=== PATIENT | female | born 1995 | race Caucasian/White ===

== ENCOUNTER → 2017-10-07 | Outpatient (CLI) | payer MEDICAID | LOC: HPND 12:44 | PROVIDERS: ATTEND Obstetrics & Gynecology | DX: O99.212 Obesity complicating pregnancy, second trimester (principal); E66.01 Morbid (severe) obesity due to excess calories; Z68.42 Body mass index [BMI] 45.0-49.9, adult | CPT/HCPCS: 76811 ==

== ENCOUNTER 2018-02-05 12:20 | Inpatient (IN) ==
--- NOTE | 2018-02-05 14:02 | P.HPOB ---
History of Present Illness Primary Care Physician: No Primary Care Physician History of Present Illness: Patient is a 22-year-old female at 39 and 1 presents to the emergency room with positive SROM at 9:30 AM. States that the fluid was clear, denies any vaginal bleeding, confirms movements, denies any contractions. Patient states she lost her mucous plug last week Thursday. She is being seen by Dr. Saini. She also complains of headaches that have started over this week. She has had multiple that come and go throughout the day. course: Complicated by morbid obesity. Denies any other complications. GBS negative, A+. Had a history of one elevated blood pressure that had resolved. Past medical history: Anxiety, GERD. Past surgical history: Tonsillectomy, wisdom tooth extraction. Allergies: Latex (contact dermatitis/rash) Social history: She denies smoking, drinking, or illicit drug use during . ROS: She denies any CP, SOB, Ab Pain, Problems with urination/defecation. - Inpatient Certification I certify that the inpatient services were ordered in accordance with Medicare regulations governing the order. This includes certification that hospital inpatient services are reasonable and necessary and in the case of services not specified as inpatient-only under 42 CFR 419.22(n), that they are appropriately provided as inpatient services in accordance to with the 2-midnight benchmark under 43 CFR 412.3(e) Estimated Total Length of Stay (Days): 3 Plans for Post Hospital Care: Home Review of Systems All other systems reviewed negative except as stated in HPI Medications and Allergies Active Medications: Active Medications Citric Acid/Sodium Citrate (Sodium Citrate/Citric Acid Liq) 30 ml PO [employer]WRIT[employer] [facility] Stop: 02/09/18 14:14 Fentanyl Citrate (Fentanyl Inj) 50 mcg IV.PUSH Q1H PRN PRN Reason: Pain Scale 3 - 5 Fentanyl Citrate (Fentanyl Inj) 100 mcg IV.PUSH Q1H PRN PRN Reason: PAIN SCALE 6 TO 10 Lactated Ringer's (Lr 1000 Ml Inj) 1,000 mls @ 125 mls/hr IV.CONT .Q8H [facility] Lactated Ringer's (Lr 1000 Ml Inj) 1,000 mls @ 3,000 mls/hr IV.SIG UNSCH PRN PRN Reason: compromise or epidural Sodium Chloride (Ns Inj) 1,000 mls @ 100 mls/hr IV.CONT .Q10H PRN PRN Reason: SEE LABEL COMMENTS Oxytocin (Pitocin 30 Units/Ns 500 Ml Premix) 30 units in 500 mls @ 999 mls/hr IV.SIG BOLUS ONE Stop: 02/05/18 14:33 Sodium Chloride (Ns Inj) 500 mls @ 1,000 mls/hr IV.SIG UNSCH PRN PRN Reason: SEE LABEL COMMENTS Lidocaine HCl (Xylocaine 1% Inj) 0.1 ml I-DERMAL PRN PRN PRN Reason: For IV start Stop: 02/08/18 14:02 Lidocaine HCl (Xylocaine 1% Inj) 10 ml INFILTRATN PRN PRN PRN Reason: For episiotomy repair Stop: 02/07/18 14:02 Mineral Oil (Muri-Lube Oil) 10 ml TOPICAL PRN PRN PRN Reason: PRN perineal massage Naloxone HCl (Narcan Inj) 0.1 mg IV.PUSH Q2M PRN PRN Reason: for opiate reversal Allergies Allergy/AdvReac Type Severity Reaction Status Date / Time Latex, Natural Rubber Allergy Rash, Verified 02/05/18 14:26 Localized Home Medications Medication Instructions Recorded Confirmed Type cyanocobalamin-cobamamide [B12] SUBLINGUAL DAILY 02/05/18 History folic acid PO DAILY 02/05/18 History prenat.vits,jeremi,[id number] 1 PO DAILY 02/05/18 History [ Vitamin] Exam Vital signs: Vital Signs 02/05/18 12:52 02/05/18 13:30 Temperature 98.4 F Pulse Rate 116 H 91 H Respiratory Rate 18 Blood Pressure 126/88 149/93 H Narrative: GENERAL: Well-nourished, well-developed patient. SKIN: Warm and dry. CARDIOVASCULAR: Regular rate and rhythm without murmurs, gallops, or rubs. RESPIRATORY: Breath sounds equal bilaterally. No accessory muscle use. ABDOMEN/GI: Abdomen soft, non-tender, bowel sounds present, no rebound, no guarding Gravid to 39 weeks size GENITOURINARY per nursing: Cervix: mid position Dilatation: 2cm Effacement: 20% Station:-2 Presentation: cephalic Membranes: ruptured Uterine Contractions: none FHT's: Category: 1 Baseline: 140 bmp Reactive: yes Variability: moderate Decels: none EXTREMITIES: 2+ edema b/l. Assessment and Plan - Plan 22-year-old at 39+1 presents with positive SROM at 9:30 AM, and amnisure positive. GBS negative, a positive. Blood pressures mildly elevated at 149/ 93. Patient complains of headaches that have occurred over this week. 2+ edema. -Admit to labor and delivery. EFM/toco: Good accelerations, moderate variability, no decelrations. no contractions. Amnisure: Positive -Regular diet for dinner. Liquid Diet after. -LR @ 125 ml/hour -Epidural for pain. CBC, CMP, uric acid ordered. Follow-up Cervical check: 07/14/-2, [place] score 2. -Buccal Cytotec.
[2018-02-05] MEDS ORDERED: Sodium Chlor 0.9% Inj 500 ML IV.SIG PRN (14:03)
[2018-02-05] MEDS ORDERED: Oxytocin 30 Units/500ml Premix 30 UNITS/500 ML BAG IV.SIG ONE (14:03)
[2018-02-05] MEDS ORDERED: Sod Chloride 0.9% Inj 1,000 ML IV.CONT PRN (14:03)
[2018-02-05] MEDS ORDERED: Naloxone Inj 0.4 MG/ML Vial IV.PUSH PRN (14:03)
[2018-02-05] MEDS ORDERED: fentaNYL Citrate Inj 100 MCG/2 ML Ampul IV.PUSH PRN ×2 (14:03)
[2018-02-05] MEDS ORDERED: Citric Acid/Sodium Citrate Liq 30 ML UDC PO SCH (14:15)
--- NOTE | 2018-02-05 14:15 | ED ---
History of Present Illness Primary Care Physician: No Primary Care Physician History of Present Illness: Patient is a 22-year-old female at 39 and 1 presents to the emergency room with positive SROM at 9:30 AM. States that the fluid was clear, denies any vaginal bleeding, confirms movements, denies any contractions. Patient states she lost her mucous plug last week Thursday. She is being seen by Dr. Saini. She also complains of headaches that have started over this week. She has had multiple that come and go throughout the day. course: Complicated by morbid obesity. Denies any other complications. GBS negative, A+. Had a history of one elevated blood pressure that had resolved. Past medical history: Anxiety, GERD. Past surgical history: Tonsillectomy, wisdom tooth extraction. Allergies: Latex (contact dermatitis/rash) Social history: She denies smoking, drinking, or illicit drug use during . ROS: She denies any CP, SOB, Ab Pain, Problems with urination/defecation. - Inpatient Certification I certify that the inpatient services were ordered in accordance with Medicare regulations governing the order. This includes certification that hospital inpatient services are reasonable and necessary and in the case of services not specified as inpatient-only under 42 CFR 419.22(n), that they are appropriately provided as inpatient services in accordance to with the 2-midnight benchmark under 43 CFR 412.3(e) Estimated Total Length of Stay (Days): 3 Plans for Post Hospital Care: Home Review of Systems All other systems reviewed negative except as stated in HPI Medications and Allergies Active Medications: Active Medications Citric Acid/Sodium Citrate (Sodium Citrate/Citric Acid Liq) 30 ml PO [employer] DES[employer]INE[employer] [facility] Stop: 02/09/18 14:14 Fentanyl Citrate (Fentanyl Inj) 50 mcg IV.PUSH Q1H PRN PRN Reason: Pain Scale 3 - 5 Fentanyl Citrate (Fentanyl Inj) 100 mcg IV.PUSH Q1H PRN PRN Reason: PAIN SCALE 6 TO 10 Lactated Ringer's (Lr 1000 Ml Inj) 1,000 mls @ 125 mls/hr IV.CONT .Q8H [facility] Lactated Ringer's (Lr 1000 Ml Inj) 1,000 mls @ 3,000 mls/hr IV.SIG UNSCH PRN PRN Reason: compromise or epidural Sodium Chloride (Ns Inj) 1,000 mls @ 100 mls/hr IV.CONT .Q10H PRN PRN Reason: SEE LABEL COMMENTS Oxytocin (Pitocin 30 Units/Ns 500 Ml Premix) 30 units in 500 mls @ 999 mls/hr IV.SIG BOLUS ONE Stop: 02/05/18 14:33 Sodium Chloride (Ns Inj) 500 mls @ 1,000 mls/hr IV.SIG UNSCH PRN PRN Reason: SEE LABEL COMMENTS Lidocaine HCl (Xylocaine 1% Inj) 0.1 ml I-DERMAL PRN PRN PRN Reason: For IV start Stop: 02/08/18 14:02 Lidocaine HCl (Xylocaine 1% Inj) 10 ml INFILTRATN PRN PRN PRN Reason: For episiotomy repair Stop: 02/07/18 14:02 Mineral Oil (Muri-Lube Oil) 10 ml TOPICAL PRN PRN PRN Reason: PRN perineal massage Naloxone HCl (Narcan Inj) 0.1 mg IV.PUSH Q2M PRN PRN Reason: for opiate reversal Allergies Allergy/AdvReac Type Severity Reaction Status Date / Time Latex, Natural Rubber Allergy Rash, Verified 02/05/18 14:26 Localized Home Medications Medication Instructions Recorded Confirmed Type cyanocobalamin-cobamamide [B12] SUBLINGUAL DAILY 02/05/18 History folic acid PO DAILY 02/05/18 History prenat.vits,jeremi,[id number] 1 PO DAILY 02/05/18 History [ Vitamin] Exam Vital signs: Vital Signs 02/05/18 12:52 02/05/18 13:30 Temperature 98.4 F Pulse Rate 116 H 91 H Respiratory Rate 18 Blood Pressure 126/88 149/93 H Narrative: GENERAL: Well-nourished, well-developed patient. SKIN: Warm and dry. CARDIOVASCULAR: Regular rate and rhythm without murmurs, gallops, or rubs. RESPIRATORY: Breath sounds equal bilaterally. No accessory muscle use. ABDOMEN/GI: Abdomen soft, non-tender, bowel sounds present, no rebound, no guarding Gravid to 39 weeks size GENITOURINARY per nursing: Cervix: mid position Dilatation: 2cm Effacement: 20% Station:-2 Presentation: cephalic Membranes: ruptured Uterine Contractions: none FHT's: Category: 1 Baseline: 140 bmp Reactive: yes Variability: moderate Decels: none EXTREMITIES: 2+ edema b/l. Assessment and Plan - Plan 22-year-old at 39+1 presents with positive SROM at 9:30 AM, and amnisure positive. GBS negative, a positive. Blood pressures mildly elevated at 149/ 93. Patient complains of headaches that have occurred over this week. 2+ edema. -Admit to labor and delivery. EFM/toco: Good accelerations, moderate variability, no decelrations. no contractions. Amnisure: Positive -Regular diet for dinner. Liquid Diet after. -LR @ 125 ml/hour -Epidural for pain. CBC, CMP, uric acid ordered. Follow-up Cervical check: 07/14/2, [place] score 2. -Buccal Cytotec. Discharge Plan - Discharge Condition Condition: Stable - Physicians Team Primary Care Provider: Primary Care Viridiana Miranda Attending Provider: Harsh Noland
[2018-02-05 14:43] LABS: Baso % (Auto) 0.2 % (0.0-2.0); Eos # (Auto) 0.1 th/mm3 (0.0-0.4); Eos % (Auto) 0.7 % (0.0-4.0); Hematocrit 34.7 % (35.0-46.0); Hemoglobin 11.7 gm/dL (11.6-15.3); Lymph % (Auto) 15.5 % (9.0-44.0); Mean Corpuscular HGB Conc 33.8 % (32.0-36.0); Mean Corpuscular Hemoglobin 29.4 pg (27.0-34.0); Mono # (Auto) 0.7 th/mm3 (0.0-0.9); Mono % (Auto) 5.6 % (0.0-8.0); Neut # (Auto) 10.3 th/mm3 (1.8-7.7); Platelet Count 227 th/mm3 (150-450); Red Blood Count 3.99 mil/mm3 (4.00-5.30); Red Cell Distribution Width 13.4 % (11.6-17.2); White Blood Count 13.2 th/mm3 (4.0-11.0)
[2018-02-05 14:58] LABS: Albumin 2.8 g/dL (3.4-5.0); Anion Gap 9 meq/L (5-15); Blood Urea Nitrogen 11 mg/dL (7-18); Calcium 8.2 mg/dL (8.5-10.1); Carbon Dioxide 25.2 meq/L (21.0-32.0); Chloride 105 meq/L (98-107); Glomerular Filtration Rate Greater Than 89 mL/min (>89); Glucose,Random 85 mg/dL (74-106); Potassium 3.7 meq/L (3.5-5.1); Sodium 139 meq/L (136-145)
[2018-02-05 14:59] LABS: Alanine Aminotransferase 38 U/L (10-53); Aspartate Aminotransferase 23 U/L (15-37)
[2018-02-05 15:01] LABS: Alkaline Phosphatase 105 U/L (45-117); Bacteria,Urine Rare /hpf; Bilirubin,Urine Negative (Negative); Clarity,Urine Turbid (Clear); Color,Urine Yellow (Yellw/Straw); Glucose,Urine (UA) Negative (Negative); Leukocyte Esterase,Urine Moderate (Negative); Mucus,Urine Few /lpf (Occasional); Nitrite,Urine Negative (Negative); Specific Gravity,Urine 1.013 (1.002-1.035); Squamous Epithelial Cell,Urine 35 /hpf (0-5); Total Protein 6.6 g/dL (6.4-8.2)
[2018-02-05 15:07] LABS: Amphetamine Urine With Conf Neg (Neg); Benzodiazepine Urine With Conf Neg (Neg)
[2018-02-05] MEDS ORDERED: Oxytocin 30 Units/500ml Premix 30 UNITS/500 ML BAG IV.SIG PRN (20:12)
[2018-02-06] MEDS ORDERED: Bupivacaine PF 0.25% Inj 10 ML Vial ONE ×2 (00:09→03:13)
[2018-02-06] MEDS ORDERED: Lidocaine PF 1% Inj 5 ML Vial ONE (00:10)
[2018-02-06] MEDS ORDERED: Lidocaaine 1.5%/Epinephrine 1:200,000 PF Inj 5 ML Amp ONE (00:10)
[2018-02-06] MEDS ORDERED: fentaNYL 2MCG-Bupiv 0.125% Epi 150 ML EPIDURAL ONE (00:10)
[2018-02-06] MEDS ORDERED: fentaNYL 2MCG-Bupiv 0.125% Epi 150 ML EPIDURAL PRN (00:58)
[2018-02-06] MEDS ORDERED: fentaNYL Citrate Inj 100 MCG/2 ML Ampul EPIDURAL ONE (00:58)
[2018-02-06] MEDS ORDERED: Gentamicin Inj 100 MG in Sodium Chlor 0.9% Inj 100 ML IV.SIG SCH ×2 (05:09→08:44)
--- NOTE | 2018-02-06 05:33 | P.OBLABOR ---
Subjective Interval history: His primiparous patient at 39 weeks has been having labor augmentation/ induction all day since noon and is achieved cervical dilation of 7 cm/90/0/vtx , she is started on a temperature now 100.5 consistent with mild chor io amnionitis, her heart rate tracing shows tachycardia but moderate to marked variability and she is [place] every 3-5 minutes. Currently Pitocin is off. Will begin ampicillin gentamicin IV for chorio Objective Vital Signs: Vital Signs - 8 hr 02/05/18 23:00 02/06/18 00:18 02/06/18 00:20 Temperature 98.5 F Pulse Rate 106 H 98 H Respiratory Rate 22 Blood Pressure 158/85 H 149/97 H 02/06/18 00:25 02/06/18 00:30 02/06/18 00:36 Temperature Pulse Rate 98 H 100 H 113 H Respiratory Rate Blood Pressure 157/82 H 157/101 H 152/71 H 02/06/18 00:40 02/06/18 00:55 02/06/18 01:00 Temperature 98.5 F Pulse Rate 105 H 97 H 119 H Respiratory Rate Blood Pressure 147/75 H 149/75 H 137/59 L 02/06/18 01:10 02/06/18 01:25 02/06/18 01:35 Temperature Pulse Rate 96 H 101 H 107 H Respiratory Rate Blood Pressure 144/72 H 104/52 L 122/49 L 02/06/18 02:10 02/06/18 02:15 02/06/18 02:20 Temperature Pulse Rate 102 H 117 H 108 H Respiratory Rate Blood Pressure 137/62 120/49 L 115/52 L 02/06/18 02:21 02/06/18 02:40 02/06/18 02:50 Temperature Pulse Rate 113 H 109 H 116 H Respiratory Rate Blood Pressure 126/48 L 115/49 L 114/54 L 02/06/18 02:51 02/06/18 02:59 02/06/18 03:20 Temperature 98.6 F Pulse Rate 113 H 120 H 110 H Respiratory Rate 15 Blood Pressure 119/63 129/69 132/64 02/06/18 03:26 02/06/18 03:28 02/06/18 03:40 Temperature Pulse Rate 110 H 117 H 117 H Respiratory Rate Blood Pressure 134/75 143/80 H 02/06/18 03:50 02/06/18 04:10 02/06/18 04:20 Temperature Pulse Rate 123 H 117 H 114 H Respiratory Rate Blood Pressure 148/54 H 113/58 L 120/63 02/06/18 04:25 02/06/18 04:35 02/06/18 04:55 Temperature Pulse Rate 105 H 105 H 108 H Respiratory Rate Blood Pressure 135/64 139/68 02/06/18 05:00 02/06/18 05:05 Temperature 100.5 F H Pulse Rate 116 H 116 H Respiratory Rate 15 Blood Pressure 141/71 H Objective: Pelvic Exam: Cervix: [-] Dilatation: [-] Effacement: [-] Station: [-] Presentation: [-] Membranes: [intact or ruptured] Uterine Contractions: [-] FHT's: Category: [-] Baseline: [-] Reactive: [-] Variability: [-] Decels: [-] Assessment and Plan - Plan 39 weeks with SROM and labor induction/augmentation was slow but steady cervical progress currently /0 Chorioamnionitis-began IV ampicillin gentamicin - Anticipate vaginal delivery
[2018-02-06] MEDS ORDERED: Morphine Sulfate PF Inj 5 MG/10 ML Ampul ONE (06:13)
[2018-02-06] MEDS ORDERED: Naloxone Inj 0.4 MG/ML Vial IV.PUSH PRN (06:33)
[2018-02-06] MEDS ORDERED: Phenylephrine/NS 1000 MCG/10ML Syringe IV.PUSH ONE (06:35)
[2018-02-06] MEDS ORDERED: Sodium Chlor 0.9% Inj 250 ML IV.CONT ONE (06:45)
[2018-02-06] MEDS ORDERED: Zolpidem Tartrate 5 MG Tablet PO PRN (08:39)
[2018-02-06] MEDS ORDERED: Oxytocin 30 Units/500ml Premix 30 UNITS/500 ML BAG IV.SIG ONE (08:39)
[2018-02-06] MEDS ORDERED: Simethicone 80 MG Chew Tablet PO PRN (08:39)
[2018-02-06] MEDS ORDERED: Acetaminophen 325 MG Tablet PO PRN (08:39)
--- NOTE | 2018-02-06 08:55 | P.OP ---
- Preoperative Diagnosis (1) Non-reassuring heart rate or rhythm affecting management of mother (2) Chorioamnionitis in third trimester (3) 39 weeks gestation of - Postoperative Diagnosis (1) Non-reassuring heart rate or rhythm affecting management of mother (2) Chorioamnionitis, delivered, current hospitalization Date of procedure: 02/06/18 Procedure: Primary low transverse section Anesthesia: spinal Surgeon: Harsh Noland MD Estimated blood loss (mL): 500 IV fluids (mL): 1,000 Urine output (mL): 50 Operation and Findings: 39 week primiparous patient who had SROM and was induced on Augmentin for that labored long all day achieved a cervical dilation 7 cm with little change after that and development of chorioamnionitis at that same time with temperature 100.5 shaking chills tachycardia loss of variability to the point of minimal variability and is felt that the baby was compromised from the chorioamnionitis and could not tolerate another 2-3 hours of labor and pushing. Patient was taken to the operating room and after adequate spinal anesthesia prepped and draped for abdominal surgery. Pannus retractor used to pull the pannus up exposing the lower abdomen. Pfannenstiel incision was made lower abdomen carried to fascia sharply fascia dissected off the rectus muscle and rectus split in the midline. Pinnae cavity entered sharply and incision extended superior and inferiorly. Stretched open and bladder blade placed lower his incision. Visceral peritoneum martine of lower uterine segment placed on the bladder blade. A transverse hysterotomy was made extended bluntly bilaterally and at that time a male infant was delivered at 6:57 AM 8/ 9 weight 3540 gm. Delayed cord clamping was done cord blood was obtained cord gas was sampled. Placenta manually extracted and sent to pathology placenta was cultured as well as the endometrial cavity cultured at that time. The hysterotomy then closed in running layer of 0 chromic followed by imbricating suture same hemostasis was achieved with stick tie. The uterus was elevated blood suctioned cul-de-sac gutters the ovaries and tubes within normal the uterus replaced the peritoneal cavity. The parietal peritoneum was closed in a running layer 2-0 Vicryl. Muscle reapproximated with stick ties of chromic. The fascia closed running layer 0 Vicryl. Subcutaneous tissues and space closed with 0 plain catgut running suture. with 3-0 Monocryl used to close the skin and subcu. The wound area was cleaned and then dried. The 7 day silver dressing was placed on the incision and allow the pannus to come back down over that. Estimate blood loss 500 cc and no complications sponge and needle correct 2 the patient recovery in stable condition
[2018-02-06] MEDS: Clindamycin 900 mg/NS Premix 900 MG/50 ML PIGGYBACK IV.SIG SCH ×2 (10:54→17:27)
[2018-02-06] MEDS ORDERED: Oxytocin 30 Units/500ml Premix 30 UNITS/500 ML BAG IV.SIG PRN (13:41)
[2018-02-06] MEDS: Gentamicin Inj 100 MG in Sodium Chlor 0.9% Inj 100 ML IV.SIG SCH ×2 (15:20→21:07)
[2018-02-07] MEDS: Clindamycin 900 mg/NS Premix 900 MG/50 ML PIGGYBACK IV.SIG SCH (02:38)
[2018-02-07 08:13] LABS: Baso # (Auto) 0.1 th/mm3 (0.0-0.2); Baso % (Auto) 0.3 % (0.0-2.0); Eos # (Auto) 0.1 th/mm3 (0.0-0.4); Eos % (Auto) 0.3 % (0.0-4.0); Lymph # (Auto) 2.1 th/mm3 (1.0-4.8); Lymph % (Auto) 11.2 % (9.0-44.0); Mean Corpuscular HGB Conc 33.1 % (32.0-36.0); Mean Corpuscular Hemoglobin 28.8 pg (27.0-34.0); Mean Corpuscular Volume 86.8 fL (80.0-100.0); Mean Platelet Volume 10.2 fL (7.0-11.0); Mono # (Auto) 1.3 th/mm3 (0.0-0.9); Mono % (Auto) 6.7 % (0.0-8.0); Neut # (Auto) 15.4 th/mm3 (1.8-7.7); Neut % (Auto) 81.5 % (16.0-70.0); Platelet Count 196 th/mm3 (150-450); Red Blood Count 3.46 mil/mm3 (4.00-5.30); Red Cell Distribution Width 13.6 % (11.6-17.2); White Blood Count 18.8 th/mm3 (4.0-11.0)
--- NOTE | 2018-02-07 08:37 | P.PNOB ---
Subjective Interval history: Patient is a 22 year-old delivered at 39 weeks. Patient is postop day 1 after secondary to chorioamnionitis. She has been afebrile for 24 hours. Patient's pain is well-controlled. Patient reports eating and drinking without any nausea or vomiting. Patient reports minimal bleeding. Patient has not passed gas and had no bowel movements. Patient is walking without lower extremity pain or shortness of breath. Patient is breast-feeding. Objective Vital Signs/I&O: Vital Signs 02/06/18 09:20 02/06/18 16:00 02/06/18 20:40 Temperature 98.2 F 98.5 F 98.2 F Pulse Rate 97 H 97 H 97 H Respiratory Rate 22 20 20 Blood Pressure 124/69 133/58 L 111/69 02/06/18 23:00 02/07/18 00:50 02/07/18 02:00 Temperature 98.2 F Pulse Rate 20 L Respiratory Rate 20 8 L 18 Blood Pressure 150/87 H 02/07/18 04:20 02/07/18 04:21 Temperature 97.9 F Pulse Rate 84 Respiratory Rate 18 Blood Pressure 94/46 L Intake & Output 02/06/18 02/07/18 02/07/18 18:59 06:59 18:59 Intake Total 202.5 / 202.5 Balance 202.5 / 202.5 Intake: IV 202.5 / 202.5 Cleocin 900 mg/NS Premix 900 mg 100 / 100 In 50 ml @ 100 mls/hr IV.SIG Q8H [facility] Rx#:[id number] Gentamicin Inj 100 MG In NS Inj 102.5 / 102.5 100 ML @ 100 mls/hr IV.SIG Q8H [facility] Rx#:[id number] Result Diagrams: 02/07/18 06:49 02/05/18 14:07 Objective Remarks: GENERAL: Well-nourished, well-developed patient. CARDIOVASCULAR: Regular rate and rhythm without murmurs, gallops, or rubs. RESPIRATORY: Breath sounds equal bilaterally. No accessory muscle use. ABDOMEN/GI: Abdomen soft, non-tender, bowel sounds present. Incision: Clean, dry and intact. Fundus: Unable to palpate due to large pannus. GENITOURINARY: Light to moderate bleeding. EXTREMITIES: No cyanosis or edema, non-tender, without signs of DVT. Medications and IVs: Active Medications Acetaminophen (Tylenol) 650 mg PO Q6H PRN PRN Reason: PAIN SCALE 1 TO 2 Diphtheria/Pertussis/Tetanus Vacc (Boostrix Vaccine Inj) 0.5 ml IM .ONCE ONE Stop: 02/07/18 16:01 Sodium Chloride (Ns Inj) 1,000 mls @ 100 mls/hr IV.CONT .Q10H PRN PRN Reason: SEE LABEL COMMENTS Sodium Chloride (Ns Inj) 500 mls @ 1,000 mls/hr IV.SIG UNSCH PRN PRN Reason: SEE LABEL COMMENTS Lactated Ringer's (Lr 1000 Ml Inj) 1,000 mls @ 100 mls/hr IV.CONT .Q10H [facility] Stop: 02/07/18 09:40 Oxytocin (Pitocin 30 Units/Ns 500 Ml Premix) 30 units in 500 mls @ 100 mls/hr IV.SIG UNSCH PRN PRN Reason: Heavy bleeding Ibuprofen (Motrin) 800 mg PO Q8H PRN PRN Reason: cramping Last Admin: 02/07/18 02:38 Dose: 800 mg Ketorolac Tromethamine (Toradol Inj) 30 mg IM Q6H PRN PRN Reason: SEE LABEL COMMENTS Stop: 02/11/18 08:38 Last Admin: 02/06/18 15:19 Dose: 30 mg Measles/Mumps/Rubella Vaccine Live (M-M-R Ii Vaccine Inj) 0.5 ml SQ .ONCE ONE Stop: 02/07/18 16:01 Ondansetron HCl (Zofran Inj) 4 mg IV.PUSH Q6H PRN PRN Reason: NAUSEA OR VOMITING Oxycodone/Acetaminophen (Percocet 5/325 Mg) 1 tab PO Q4H PRN PRN Reason: PAIN SCALE 3 TO 5 Oxycodone/Acetaminophen (Percocet 5/325 Mg) 2 tab PO Q4H PRN PRN Reason: PAIN SCALE 6 TO 10 Last Admin: 02/07/18 02:38 Dose: 2 tab Senna/Docusate Sodium (Cindi-Colace) 2 tab PO Q12H PRN PRN Reason: CONSTIPATION Simethicone (Mylicon Chew) 80 mg PO QID PRN PRN Reason: FLATULENCE Sodium Chloride (Ns Flush) 2 ml IV.FLUSH BID [facility] Last Admin: 02/06/18 21:07 Dose: 2 ml Sodium Chloride (Ns Flush) 2 ml IV.FLUSH PRN PRN PRN Reason: FLUSH AFTER USING IV ACCESS Zolpidem Tartrate (Ambien) 5 mg PO HS PRN PRN Reason: INSOMNIA Assessment and Plan - Plan Patient is a 22-year-old delivered at 39 weeks. Patient is postop day 1 after c section 2/2 chorioamnionitis. -She has been afebrile for more than 24 hours. Tmax overnight: 99.1. DC Gentamicin and Clindamycin. -Continue routine care. -Motrin and Percocet when necessary for pain. -Encourage OOB -Pelvic rest for 6 weeks will need follow-up appointment at that time. - appropriately. -Encourage stool softener. -Discussed with Dr. Salter .
[2018-02-07] MEDS ORDERED: Diphtheria/Tetanus/Pertussis Vaccine Inj 0.5 ML Syringe IM ONE (16:00)
[2018-02-07] MEDS ORDERED: Measles/Mumps/Rubella Vaccine Inj 0.5 ML Vial SQ ONE (16:00)
--- NOTE | 2018-02-08 09:21 | P.PNOB ---
Subjective Interval history: Patient is a 22 year-old delivered at 39 weeks. Patient is postop day 2 after secondary to chorioamnionitis. AFVSS. Patient's pain is well- controlled. Patient reports eating and drinking without any nausea or vomiting. Patient reports minimal bleeding. Patient has passed gas and had no bowel movements. Patient is walking without lower extremity pain or shortness of breath. Patient is breast-feeding. Objective Vital Signs/I&O: Vital Signs 02/07/18 20:40 02/08/18 08:00 Temperature 98.0 F 97.9 F Pulse Rate 98 H 98 H Respiratory Rate 20 20 Blood Pressure 123/83 118/63 Result Diagrams: 02/07/18 06:49 02/05/18 14:07 Objective Remarks: GENERAL: Well-nourished, well-developed patient. CARDIOVASCULAR: Regular rate and rhythm without murmurs, gallops, or rubs. RESPIRATORY: Breath sounds equal bilaterally. No accessory muscle use. ABDOMEN/GI: Abdomen soft, non-tender, bowel sounds present. Incision: Clean, dry and intact. Fundus: Unable to Palpate due to body habitus GENITOURINARY: Light to moderate bleeding. EXTREMITIES: No cyanosis or edema, non-tender, without signs of DVT. Medications and IVs: Active Medications Acetaminophen (Tylenol) 650 mg PO Q6H PRN PRN Reason: PAIN SCALE 1 TO 2 Sodium Chloride (Ns Inj) 1,000 mls @ 100 mls/hr IV.CONT .Q10H PRN PRN Reason: SEE LABEL COMMENTS Sodium Chloride (Ns Inj) 500 mls @ 1,000 mls/hr IV.SIG UNSCH PRN PRN Reason: SEE LABEL COMMENTS Oxytocin (Pitocin 30 Units/Ns 500 Ml Premix) 30 units in 500 mls @ 100 mls/hr IV.SIG UNSCH PRN PRN Reason: Heavy bleeding Ibuprofen (Motrin) 800 mg PO Q8H PRN PRN Reason: cramping Last Admin: 02/08/18 08:46 Dose: 800 mg Ketorolac Tromethamine (Toradol Inj) 30 mg IM Q6H PRN PRN Reason: SEE LABEL COMMENTS Stop: 02/11/18 08:38 Last Admin: 02/06/18 15:19 Dose: 30 mg Ondansetron HCl (Zofran Inj) 4 mg IV.PUSH Q6H PRN PRN Reason: NAUSEA OR VOMITING Oxycodone/Acetaminophen (Percocet 5/325 Mg) 1 tab PO Q4H PRN PRN Reason: PAIN SCALE 3 TO 5 Oxycodone/Acetaminophen (Percocet 5/325 Mg) 2 tab PO Q4H PRN PRN Reason: PAIN SCALE 6 TO 10 Last Admin: 02/08/18 03:56 Dose: 2 tab Senna/Docusate Sodium (Cindi-Colace) 2 tab PO Q12H PRN PRN Reason: CONSTIPATION Simethicone (Mylicon Chew) 80 mg PO QID PRN PRN Reason: FLATULENCE Sodium Chloride (Ns Flush) 2 ml IV.FLUSH BID [facility] Last Admin: 02/07/18 11:46 Dose: Not Given Sodium Chloride (Ns Flush) 2 ml IV.FLUSH PRN PRN PRN Reason: FLUSH AFTER USING IV ACCESS Zolpidem Tartrate (Ambien) 5 mg PO HS PRN PRN Reason: INSOMNIA Assessment and Plan - Plan Patient is a 22-year-old delivered at 39 weeks. Patient is postop day 2 after c section 2/2 chorioamnionitis. AFVSS. -Continue routine care. -Keep silvernitrate dressing on for one week. -Motrin and Percocet when necessary for pain. -Encourage OOB -Pelvic rest for 6 weeks will need follow-up appointment at that time. - appropriately. -Follow Up in one week for incision check. -Encourage stool softener. -Discussed with Dr. Noland .
[2018-02-08] MEDS ORDERED: Diphtheria/Tetanus/Pertussis Vaccine Inj 0.5 ML Syringe IM ONE (13:30)
[2018-02-08] MEDS: Senna/Docusate Sodium 8.6/50 MG Tablet PO PRN (19:15)
[2018-02-08 20:30] VITALS: BP 134/79; PULSE 81; RESP 18; TEMP 98.3
--- NOTE | 2018-02-09 08:49 | P.PNOB ---
Subjective Interval history: Patient is a 22 year-old delivered at 39 weeks. Patient is postop day 3 after secondary to chorioamnionitis with minimal variability. AFVSS. Patient's pain is well-controlled. Patient reports eating and drinking without any nausea or vomiting. Patient reports minimal bleeding. Patient has passed gas and had no bowel movements. Patient is walking without lower extremity pain or shortness of breath. Patient is breast-feeding. She is considering the IUD for contraception and will discuss with her OB provider in 6 weeks. She is ready for d/c today. Objective Vital Signs/I&O: Vital Signs 02/08/18 09:00 02/08/18 14:33 02/08/18 20:00 Temperature 98.6 F 97.8 F 98.3 F Pulse Rate 93 H 103 H 81 Respiratory Rate 14 23 18 Blood Pressure 114/52 L 137/76 134/79 Result Diagrams: 02/07/18 06:49 02/05/18 14:07 Objective Remarks: GENERAL: Well-nourished, well-developed patient. CARDIOVASCULAR: Regular rate and rhythm without murmurs, gallops, or rubs. RESPIRATORY: Breath sounds equal bilaterally. No accessory muscle use. ABDOMEN/GI: Abdomen soft, non-tender, bowel sounds present. Incision: Clean, dry and intact. Silver nitrate dressing intact. Fundus: Unable to palpate due to body habitus. GENITOURINARY: Light to moderate bleeding. EXTREMITIES: No cyanosis or edema, non-tender, without signs of DVT. Medications and IVs: Active Medications Acetaminophen (Tylenol) 650 mg PO Q6H PRN PRN Reason: PAIN SCALE 1 TO 2 Sodium Chloride (Ns Inj) 1,000 mls @ 100 mls/hr IV.CONT .Q10H PRN PRN Reason: SEE LABEL COMMENTS Sodium Chloride (Ns Inj) 500 mls @ 1,000 mls/hr IV.SIG UNSCH PRN PRN Reason: SEE LABEL COMMENTS Oxytocin (Pitocin 30 Units/Ns 500 Ml Premix) 30 units in 500 mls @ 100 mls/hr IV.SIG UNSCH PRN PRN Reason: Heavy bleeding Ibuprofen (Motrin) 800 mg PO Q8H PRN PRN Reason: cramping Last Admin: 02/09/18 04:03 Dose: 800 mg Ketorolac Tromethamine (Toradol Inj) 30 mg IM Q6H PRN PRN Reason: SEE LABEL COMMENTS Stop: 02/11/18 08:38 Last Admin: 02/06/18 15:19 Dose: 30 mg Ondansetron HCl (Zofran Inj) 4 mg IV.PUSH Q6H PRN PRN Reason: NAUSEA OR VOMITING Oxycodone/Acetaminophen (Percocet 5/325 Mg) 1 tab PO Q4H PRN PRN Reason: PAIN SCALE 3 TO 5 Last Admin: 02/08/18 23:38 Dose: 1 tab Oxycodone/Acetaminophen (Percocet 5/325 Mg) 2 tab PO Q4H PRN PRN Reason: PAIN SCALE 6 TO 10 Last Admin: 02/09/18 04:05 Dose: 2 tab Senna/Docusate Sodium (Cindi-Colace) 2 tab PO Q12H PRN PRN Reason: CONSTIPATION Last Admin: 02/08/18 19:15 Dose: 2 tab Simethicone (Mylicon Chew) 80 mg PO QID PRN PRN Reason: FLATULENCE Sodium Chloride (Ns Flush) 2 ml IV.FLUSH BID HAZEL Last Admin: 02/09/18 06:49 Dose: Not Given Sodium Chloride (Ns Flush) 2 ml IV.FLUSH PRN PRN PRN Reason: FLUSH AFTER USING IV ACCESS Zolpidem Tartrate (Ambien) 5 mg PO HS PRN PRN Reason: INSOMNIA Assessment and Plan - Plan Patient is a 22-year-old delivered at 39 weeks. Patient is postop day 3 after c section. AFVSS. -Continue routine care. -Keep silver nitrate dressing on for one week. -Follow up in 1 week for incision check. -Motrin and Percocet when necessary for pain. -Encourage OOB -UA positive for mixed gram positive gabo. -Will be d/c to home on keflex 500 mg BID for 7 days. -Pelvic rest for 6 weeks will need follow-up appointment at that time. - appropriately. -Encourage stool softener. -D/C to home today. -Discussed with Dr. CANDE Bartholomew
[2018-02-09] MEDS: Senna/Docusate Sodium 8.6/50 MG Tablet PO PRN (10:56)
== END 2018-02-09 11:05 | disposition home or self-care (01) ==
LOC: HOBED 12:20 → H2E 13:00 → H1EA 02-06 08:54
PROVIDERS: ADMIT Obstetrics & Gynecology Maternal & Fetal Medicine; ATTEND Obstetrics & Gynecology Maternal & Fetal Medicine